=== PATIENT | female | born 1950 | race Hispanic/Latino ===

== ENCOUNTER 2017-07-29 16:32 | Inpatient (IN) | payer MEDICARE, OTHER ==
[2017-07-29] MEDS ORDERED: Magnesium Sulfate 2 GM in Sodium Chloride 0.9% 100 ML IVPB ONE (16:39)
[2017-07-29] MEDS: Albuterol-Ipratrop 3 mg / 0.5 (3 ml) UD IH SCH ×4 (16:59→20:00)
[2017-07-29 17:00] VITALS: BMI 18.3
--- NOTE | 2017-07-29 17:02 | ED PDOC ---
Arrival/HPI - General Chief Complaint: Shortness Of Breath Time Seen by Provider: 07/29/17 16:36 Historian: Patient - Critical Care Critical Care Minutes: 30 minutes - History of Present Illness Narrative History of Present Illness (Text): 07/29/17 16:59 A 66 year old female with no significant past medical history, presents to the emergency department in respiratory distress. The patient states that for the past several days she has been experiencing difficulty breathing. She states that she has been coughing, with yellow sputum present. The patient notes that she is a heavy smoker, but has never been diagnosed with COPD because she does not follow- up with a PMD. The patient denies fevers, chills, headache, dizziness, sore throat, chest pain , abdominal pain, nausea, vomiting, diarrhea , neck pain, back pain, urinary/bowel changes, or any other complaints. EMS reports patient was given one albuterol and solumedrol IV in field. PMD: No PMD Time/Duration: Other (Couple of Days) Symptom Onset: Sudden Symptom Course: Unchanged Activities at Onset: Rest, Light Context: Home Past Medical History - Provider Review Nursing Documentation Reviewed: Yes - Infectious Disease Hx of Infectious Diseases: None - Reproductive Menopause: Yes - Pulmonary Hx Emphysema: Yes - Neurological Hx Neurological Disorder: No - HEENT Hx HEENT Disorder: No - Renal Hx Renal Disorder: No - Endocrine/Metabolic Hx Endocrine Disorders: No - Hematological/Oncological Hx Blood Disorders: No - Integumentary Hx Dermatological Disorder: No - Musculoskeletal/Rheumatological Hx Musculoskeletal Disorders: No - Gastrointestinal Hx Gastrointestinal Disorders: No - Genitourinary/Gynecological Hx Genitourinary Disorders: No - Psychiatric Hx Psychophysiologic Disorder: No Hx Substance Use: No - Anesthesia Hx Anesthesia: No Hx Anesthesia Reactions: No Hx Malignant Hyperthermia: No Family/Social History - Physician Review Nursing Documentation Reviewed: Yes Family/Social History: No Known Family HX Smoking Status: Current Some Days Smoker Hx Alcohol Use: No Hx Substance Use: No Allergies/Home Meds Allergies/Adverse Reactions: Allergies No Known Allergies Allergy (Unverified 07/29/17 16:38) Home Medications: Home Meds Medication Instructions Recorded Confirmed Unobtainable 07/29/17 07/29/17 Review of Systems - Physician Review All systems were reviewed & negative as marked: Yes - Review of Systems Constitutional: absent: Fevers, Night Sweats Respiratory: SOB, Cough, Sputum Cardiovascular: absent: Chest Pain Gastrointestinal: absent: Abdominal Pain, Stool Changes, Diarrhea, Nausea, Vomiting Genitourinary Female: absent: Urine Output Changes Musculoskeletal: absent: Back Pain, Neck Pain Neurological: absent: Headache, Dizziness Physical Exam Vital Signs Reviewed: Yes Vital Signs Temp Pulse Resp BP Pulse Ox 07/29/17 17:21 101.6 F H 130 H 40 H 158/72 H 96 07/29/17 16:57 122 H 40 H 93 L Temperature: Afebrile Blood Pressure: Hypertensive Pulse: Tachycardic Respiratory Rate: Tachypneic Appearance: Positive for: Other (Patient in respiratory distress/ Patient tripoding in her position.) Pain Distress: None Mental Status: Positive for: Alert and Oriented X 3 - Systems Exam Head: Present: Atraumatic, Normocephalic Pupils: Present: PERRL Extroacular Muscles: Present: EOMI Conjunctiva: Present: Normal Mouth: Present: Moist Mucous Membranes Neck: No: JVD Respiratory/Chest: Present: Decreased Breath Sounds (Decreased air entry), Tachypneic. No: Wheezes Cardiovascular: Present: Tachycardic, Other (hypertensive) Abdomen: Present: Normal Bowel Sounds. No: Tenderness, Distention, Peritoneal Signs Back: Present: Normal Inspection Upper Extremity: Present: Normal Inspection. No: Cyanosis, Edema Lower Extremity: No: Edema Neurological: Present: GCS=15, CN II-XII Intact, Speech Normal Skin: Present: Warm, Dry, Normal Color. No: Rashes Psychiatric: Present: Alert, Oriented x 3, Normal Insight, Normal Concentration Medical Decision Making ED Course and Treatment: 07/29/17 17:05 Impression: A 66 year old female presents to the emergency department in respiratory distress. The patient states that for the past several days she has been having difficulty breathing, coughing with yellow sputum. Differential Diagnosis included but are not limited to: Shortness of Breath, rule out COPD vs. PNA vs. ACS. Plan: -- EKG -- Chest X-ray -- Urine/Blood Culture -- Urinalysis -- Duoneb, SOLU-Medrol, and IV Fluids -- Labs -- Reassess and disposition Progress Notes: 07/29/17 17:05: Patient was seen immediately upon arrival. She was placed on BiPAP. CHEST X- RAY Dictator : DR. Chavarria, Rick GARCIA Report Date : 07/29/2017 17:19:25 IMPRESSION: No active disease. 07/29/17 17:55 On reevaluation, patient is improving but still having symptoms. Lungs have better air entry. No wheezing but coughing. No rales. No lower extremity edema. Temperature elevated so treated with tylenol. IVF given. LA 2.0. WBC elevated at 16. CXR negative but considering coughing with sputum, fever, and respiratory will treat with antibiotics, Levaquin. Influenza test ordered. 07/29/17 18:06 Dr. Crabtree came to evaluate patient. He recommended Lasix 40mg IV which was added. - Critical Care Critical Care Minutes: 30 minutes - Lab Interpretations Lab Results: 07/29/17 16:50 07/29/17 16:50 Lab Results 07/29/17 17:30: pCO2 66 H, pO2 213.0 H, HCO3 34.8 H, ABG pH 7.33 L, ABG Total CO2 36.8 H, ABG O2 Saturation 99.8 H, ABG O2 Content 21.8, ABG Base Excess 6.1 H , ABG Hemoglobin 15.8, ABG Carboxyhemoglobin 2.7 H, POC ABG HHb (Measured) 0.2, ABG Methemoglobin 0.9, ABG O2 Capacity 21.8, Hgb O2 Saturation 96.2, FiO2 50.0 07/29/17 16:50: Sodium 138, Chloride 92 L, Potassium 3.5 L, Carbon Dioxide 36 H , Anion Gap 14, BUN 18, Creatinine 0.5 L, Est GFR ( Amer) > 60, Est GFR ( Non-Af Amer) > 60, Random Glucose 168 H, Calcium 10.0, Total Bilirubin 0.7, AST 30, ALT 21, Alkaline Phosphatase 144 H, Lactate Dehydrogenase 463, Total Creatine Kinase 64, Troponin I 0.05, NT-Pro-B Natriuret Pep 3410 H, Total Protein 7.7, Albumin 4.3, Globulin 3.5, Albumin/Globulin Ratio 1.2 07/29/17 16:50: pO2 82 H, VBG pH 7.29 L, VBG pCO2 78.0 H*, VBG HCO3 37.5 H, VBG Total CO2 39.9 H, VBG O2 Sat (Calc) 97.0 H, VBG Base Excess 7.9 H, VBG Potassium 3.5 L, Sodium 134.0, Chloride 96.0 L, Glucose 170 H, Lactate 2.0, FiO2 21.0, Venous Blood Potassium 3.5 L 07/29/17 16:50: PT 11.5, INR 1.06, APTT 30.8 07/29/17 16:50: WBC 16.2 H, RBC 5.19, Hgb 16.5 H, Hct 47.7, MCV 91.9, MCH 31.8, MCHC 34.6, RDW 13.3, Plt Count 366, MPV 11.6 H, Gran % 64.0, Lymph % (Auto) 14.6 L, [place] % (Auto) 21.1 H, Eos % (Auto) 0.1 L, Baso % (Auto) 0.2, Gran # 10.36 H, Lymph # 2.4, [place] # 3.4 H, Eos # 0.0, Baso # 0.03, Neutrophils % ( Manual) 68, Band Neutrophils % 3 H, Lymphocytes % (Manual) 18 L, Monocytes % ( Manual) 11 H, Platelet Evaluation Normal I have reviewed the lab results: Yes - RAD Interpretation Radiology Orders: 07/29/17 16:38 CHEST PORTABLE [RAD] Stat - EKG Interpretation Interpreted by ED Physician: Yes Type: 12 lead EKG - Medication Orders Current Medication Orders: Sodium Chloride (Sodium Chloride 0.9%) 1,000 mls @ 250 mls/hr IV .Q4H ONE Stop: 07/29/17 21:16 Last Admin: 07/29/17 17:41 Dose: 250 mls/hr eMAR Start Stop Document 07/29/17 17:41 (Rec: 07/29/17 17:41 [id number]) Intravenous Solution Start Date 07/29/17 Start Time 17:41 Levofloxacin/Dextrose (Levaquin 750mg) 750 mg in 150 mls @ 100 mls/hr IVPB STAT STA Stop: 07/29/17 19:17 Discontinued Medications Acetaminophen (Tylenol 325mg Tab) 650 mg PO STAT STA Stop: 07/29/17 17:45 Last Admin: 07/29/17 17:50 Dose: 650 mg Albuterol Sulfate (Albuterol 0.083% Inhal Katie (2.5 Mg/3 Ml) Ud) 2.5 mg IH STAT STA Stop: 07/29/17 17:45 Last Admin: 07/29/17 17:51 Dose: 2.5 mg Albuterol/Ipratropium (Duoneb 3 Mg/0.5 Mg (3 Ml) Ud) 3 ml IH Q15M MIKE Stop: 07/29/17 17:16 Last Admin: 07/29/17 17:30 Dose: 3 ml Magnesium Sulfate 2 gm/ Sodium (Chloride) 104 mls @ 102 mls/hr IVPB ONCE ONE Stop: 07/29/17 17:40 Last Admin: 07/29/17 16:59 Dose: 102 mls/hr eMAR Start Stop Document 07/29/17 16:59 (Rec: 07/29/17 16:59 [id number]) Intravenous Solution Start Date 07/29/17 Start Time 16:59 Potassium Chloride (K-Dur 20 Meq Er Tab) 40 meq PO STAT STA Stop: 07/29/17 17:53 - Scribe Statement The provider has reviewed the documentation as recorded by the Libiaibe Isela Tomas Provider Scribe Attestation: All medical record entries made by the Scribe were at my direction and personally dictated by me. I have reviewed the chart and agree that the record accurately reflects my personal performance of the history, physical exam, medical decision making, and the department course for this patient. I have also personally directed, reviewed, and agree with the discharge instructions and disposition. Disposition/Present on Arrival - Present on Arrival Any Indicators Present on Arrival: No History of DVT/PE: No History of Uncontrolled Diabetes: No Urinary Catheter: No History of Decub. Ulcer: No History Surgical Site Infection Following: None - Disposition Have Diagnosis and Disposition been Completed?: Yes Diagnosis: COPD (chronic obstructive pulmonary disease) Disposition: HOSPITALIZED Disposition Time: 18:01 Patient Plan: Admission, ICU Patient Problems: Current Active Problems Problem Status Onset COPD (chronic obstructive pulmonary disease) Acute Condition: CRITICAL Forms: [employer] ([place])
[2017-07-29 17:05] LABS: BASO # 0.03 K/mm3 (0.0-2.0); BASO % 0.2 % (0.0-3.0); EOS % 0.1 % (1.5-5.0); GRAN # 10.36 (1.4-6.5); HEMATOCRIT 47.7 % (36.0-48.0); LYMPH # 2.4 (1.2-3.4); LYMPH % 14.6 % (22.0-35.0); MEAN CELL VOLUME 91.9 fl (80.0-105.0); MEAN CORPUSCULAR HEMOGLOBIN 31.8 pg (25.0-35.0); MEAN CORPUSCULAR HGB CONC 34.6 g/dl (31.0-37.0); MEAN PLATELET VOLUME 11.6 fl (7.0-11.0); MONO # 3.4 (0.1-0.6); MONO % 21.1 % (1.0-6.0); PLATELET COUNT 366 10^3/uL (120.0-450.0); RED CELL DISTRIBUTION WIDTH 13.3 % (11.5-14.5); WHITE BLOOD COUNT 16.2 10^3/ul (4.5-11.0)
[2017-07-29 17:09] LABS: VENOUS BLOOD GAS BASE EXCESS 7.9 mmol/L (0.0-2.0); VENOUS BLOOD PH 7.29 (7.32-7.43)
[2017-07-29] MEDS ORDERED: Sodium Chloride 0.9% 1,000 ML IV ONE (17:17)
[2017-07-29 17:19] LABS: ALB/GLOB RATIO 1.2 (1.1-1.8); ALKALINE PHOSPHATASE 144 U/L (38-126); ALT/SGPT 21 U/L (7-56); AST/SGOT 30 U/L (14-36); BILIRUBIN,TOTAL 0.7 mg/dL (0.2-1.3); BLOOD UREA NITROGEN 18 mg/dL (7-21); CARBON DIOXIDE 36 mmol/L (21-33); CHLORIDE 92 mmol/L (98-107); GFR AFRICAN-AMERICAN > 60; GLUCOSE,RANDOM 168 mg/dL (70-110); INR 1.06 (0.93-1.08); PARTIAL THROMBOPLASTIN TIME 30.8 Seconds (23.7-30.8); POTASSIUM 3.5 mmol/L (3.6-5.0); SODIUM 138 mmol/L (132-148); TOTAL PROTEIN 7.7 g/dL (5.8-8.3)
--- NOTE | 2017-07-29 17:20 | RAD ---
HISTORY: Shortness of breath/pneumonia/ CHF. Portable semi erect study 17:05. COMPARISON: No prior. FINDINGS: LUNGS: No discrete infiltrates. PLEURA: No significant pleural effusion identified, no pneumothorax apparent. CARDIOVASCULAR: No radiographic findings to suggest acute or significant cardiovascular disease. OSSEOUS STRUCTURES: No significant abnormalities. VISUALIZED UPPER ABDOMEN: Normal. OTHER FINDINGS: Prominent nola bilaterally likely pulmonary arteries. IMPRESSION: No active disease.
[2017-07-29 17:29] LABS: TROPONIN I 0.05 ng/mL
[2017-07-29 17:39] LABS: ARTERIAL BLOOD GAS HCO3 34.8 mmol/L (21-28); ARTERIAL BLOOD GAS O2 CAPACITY 21.8 mL/dl (16-24); ARTERIAL BLOOD GAS O2 CONTENT 21.8 ML/dl (15-23); ARTERIAL BLOOD GAS PH 7.33 (7.35-7.45); ARTERIAL BLOOD HGB O2 SAT 96.2 % (95.0-98.0); CARBOXYHEMOGLOBIN 2.7 % (0.5-1.5); HHB 0.2 % (0-5); METHEMOGLOBIN 0.9 % (0.0-3.0)
[2017-07-29] MEDS ORDERED: Albuterol 0.083% Inhal Sol (2.5 mg/3 mL) UD IH STA (17:44)
[2017-07-29] MEDS ORDERED: Albuterol 0.083% Inhal Sol (2.5 mg/3 mL) UD ONE (17:47)
[2017-07-29] MEDS ORDERED: levoFLOXacin 750 mg in D5W 750 MG/150 ML BAG IVPB STA (17:48)
[2017-07-29] MEDS ORDERED: Potassium Chloride 20 mEq ER Tab PO STA (17:52)
[2017-07-29 18:04] LABS: BAND 3 % (0-2); NEUTROPHIL 68 % (50.0-70.0)
[2017-07-29 18:05] LABS: PLATELET ESTIMATE NORMAL (NORMAL)
[2017-07-29] MEDS ORDERED: Albuterol-Ipratrop 3 mg / 0.5 (3 ml) UD IH PRN (18:33)
[2017-07-29] MEDS ORDERED: cefTRIAXone 1 gm 1 GM/100 ML BAG IVPB STA (18:40)
[2017-07-29 19:54] LABS: MAGNESIUM 2.1 mg/dL (1.7-2.2); PHOSPHOROUS 2.9 mg/dL (2.5-4.5)
[2017-07-29] MEDS: Budesonide 0.25 mg/2 ml Inhal Susp UD IH SCH (20:00)
[2017-07-29] MEDS: Arformoterol 15 mcg/2 ml Inh Sol IH SCH (20:00)
[2017-07-29 20:19] LABS: VENOUS BLOOD GAS BASE EXCESS 5.3 mmol/L (0.0-2.0); VENOUS BLOOD PH 7.41 (7.32-7.43)
[2017-07-29] MEDS ORDERED: Pneumococcal 23-Valent Vaccine IM ONE (21:21)
[2017-07-29] MEDS: guaiFENesin DM 200 mg-20 mg/10 ml UD PO PRN (21:25)
[2017-07-29] MEDS ORDERED: MethylPREDNISolone 40 mg Vial IVP SCH (22:00)
--- NOTE | 2017-07-29 22:30 | CON ---
DATE: 07/29/2017 ARTIST AGENT CONSULT REQUESTING PHYSICIAN: Jose Alejandro Brand MD CHIEF COMPLAINT: The patient presenting with severe shortness of breath, cough, wheezing, chest congestion, and fever. HISTORY OF PRESENT ILLNESS: The patient is a 66-year-old female with history of COPD, present smoker, the patient stated that she stopped smoking approximately two days ago when this shortness of breath, cough, wheezing, and chest congestion first started. When presented to the emergency room the patient had respiratory insufficiency requiring BiPAP and O2 support noticed on arterial blood gas to be hypoxic and hypercapnic. She also is noted to have an increased white count as well as fever, thought to be probably secondary to a viral syndrome possibly flu, but sepsis must be ruled out as well. The patient has no complaints of chest pain. No nausea. No vomiting. No diarrhea. No abdominal pain. PAST MEDICAL HISTORY: As above. ALLERGIES: NO KNOWN ALLERGIES. CURRENT MEDICATIONS: Can be evaluated as per nurses intake form. SOCIAL HISTORY: The patient is a smoker. No ETOH abuse. No drug abuse. FAMILY HISTORY: Noncontributory. REVIEW OF SYSTEMS: CONSTITUTIONAL: The patient did present with a fever. No nausea or vomiting. HEENT: All negative. RESPIRATORY: The patient had the shortness of breath, cough, wheezing, chest congestion. CARDIOVASCULAR: No chest pain. NO palpitations. GASTROINTESTINAL: All negative. GENITOURINARY: All negative. MUSCULOSKELETAL: All negative. NEURO/PSYCHIATRIC: All negative. HEMATOLOGIC: All negative. IMMUNOLOGIC: All negative. ENDOCRINE: All negative. PHYSICAL EXAMINATION VITAL SIGNS: Note that her temperature is 101.6, her pulse is 130, respirations are , blood pressure 158/72, O2 saturation 96 with BiPAP and O2 support. HEENT: Head is atraumatic, normocephalic. Eyes are reactive to light. Ears, nose and throat seemed to be within normal limits. NECK: Supple. No JVD. No thyroid enlargement. No lymph nodes. HEART: Has a regular rate and rhythm. Normal S1 and S2, but tachycardiac. LUNGS: Reveal decrease breath sounds bilaterally with mild rhonchi at the basis and occasional expiratory wheeze. ABDOMEN: Soft and nontender. Normal bowel sounds. No organomegaly noted. GENITALIA: Deferred. RECTAL: Deferred. MUSCULOSKELETAL: No joint deformities. EXTREMITIES: Reveal no edema. NEUROLOGICAL: She seemed to be grossly intact. LABORATORY DATA: As far as her laboratories her white count is 16.2, hemoglobin 16.5, hematocrit 47.7 with a platelets of 366,000. Her sodium is 138, potassium 3.5, chloride 92, CO2 of 36, BUN of 18, creatinine 0.5, and glucose of 168. Atrial blood gas reveals a pH 7.33, PCO2 of 66, and PO2 213. This is on BiPAP and 02 support. Chest x-ray reveals no infiltrate. IMPRESSION: As far as my impression, this patient has severe exacerbation of her chronic obstructive pulmonary disease, she has fever and increased white count, must rule out sepsis, but more likely this is a viral syndrome. PLAN: As far as our plan, we will continue with aggressive pulmonary toilet, continue with BiPAP and O2 support. We will follow her chest x-ray and arterial blood gas closely. The patient is on Levaquin as antibiotic, she is getting IV steroids. We will follow up with all cultures. We will follow her laboratories closely and correct as needed and we will continue to treat aggressively along with the other consultants and the primary care doctor. Aldair Crabtree MD
[2017-07-29] MEDS: Insulin Lispro (humaLOG) LOW Coverage SC SCH (22:38)
[2017-07-30] MEDS: MethylPREDNISolone 40 mg Vial IVP SCH ×4 (01:00→17:39)
[2017-07-30] MEDS: Albuterol-Ipratrop 3 mg / 0.5 (3 ml) UD IH SCH ×4 (01:09→19:32)
[2017-07-30 03:43] LABS: PH,URINE 5.5 (4.7-8.0); URINE BILIRUBIN NEGATIVE (NEGATIVE); URINE BLOOD MODERATE (NEGATIVE); URINE GLUCOSE (UA) NEGATIVE (NEGATIVE); URINE KETONE NEGATIVE (NEGATIVE); URINE LEUKOCYTE ESTERASE NEGATIVE Leu/uL (NEGATIVE); URINE PROTEIN 100 mg/dL (<30 mg/dL); URINE UROBILINOGEN 0.2 E.U./dL (<1 E.U./dL)
[2017-07-30 03:56] LABS: URINE APPEARANCE SL CLOUDY (CLEAR); URINE COLOR YELLOW (YELLOW)
[2017-07-30 04:20] LABS: URINE WBC 0 - 2 /hpf (0-6)
[2017-07-30 04:21] LABS: URINE BACTERIA MOD (NEG)
[2017-07-30 05:24] LABS: ARTERIAL BLOOD GAS HCO3 38.4 mmol/L (21-28); ARTERIAL BLOOD GAS O2 CAPACITY 20.8 mL/dl (16-24); ARTERIAL BLOOD GAS O2 CONTENT 20.5 ML/dl (15-23); ARTERIAL BLOOD GAS PH 7.46 (7.35-7.45); ARTERIAL BLOOD HGB O2 SAT 95.9 % (95.0-98.0); CARBOXYHEMOGLOBIN 1.6 % (0.5-1.5); HHB 1.5 % (0-5); METHEMOGLOBIN 0.9 % (0.0-3.0)
[2017-07-30 05:59] LABS: BASO # 0.01 K/mm3 (0.0-2.0); BASO % 0.1 % (0.0-3.0); GRAN # 10.96 (1.4-6.5); GRAN % 87.8 % (50.0-68.0); HEMATOCRIT 43.3 % (36.0-48.0); LYMPH # 0.6 (1.2-3.4); MEAN CELL VOLUME 92.1 fl (80.0-105.0); MEAN CORPUSCULAR HEMOGLOBIN 31.3 pg (25.0-35.0); MEAN CORPUSCULAR HGB CONC 33.9 g/dl (31.0-37.0); MEAN PLATELET VOLUME 11.7 fl (7.0-11.0); MONO # 0.9 (0.1-0.6); MONO % 7.1 % (1.0-6.0); RED CELL DISTRIBUTION WIDTH 13.4 % (11.5-14.5); WHITE BLOOD COUNT 12.5 10^3/ul (4.5-11.0)
[2017-07-30 06:05] LABS: ALB/GLOB RATIO 1.2 (1.1-1.8); ALKALINE PHOSPHATASE 121 U/L (38-126); ALT/SGPT 22 U/L (7-56); AST/SGOT 28 U/L (14-36); BILIRUBIN,TOTAL 0.4 mg/dL (0.2-1.3); BLOOD UREA NITROGEN 18 mg/dL (7-21); CALCIUM 9.5 mg/dL (8.4-10.5); CHLORIDE 90 mmol/L (98-107); GFR AFRICAN-AMERICAN > 60; GLUCOSE,RANDOM 163 mg/dL (70-110); MAGNESIUM 2.3 mg/dL (1.7-2.2); PHOSPHOROUS 3.1 mg/dL (2.5-4.5); POTASSIUM 3.2 mmol/L (3.6-5.0); SODIUM 140 mmol/L (132-148); TOTAL PROTEIN 6.9 g/dL (5.8-8.3)
[2017-07-30 06:12] LABS: CARBON DIOXIDE 37 mmol/L (21-33)
[2017-07-30] MEDS: Arformoterol 15 mcg/2 ml Inh Sol IH SCH ×2 (08:30→19:32)
[2017-07-30] MEDS: Budesonide 0.25 mg/2 ml Inhal Susp UD IH SCH ×2 (08:30→19:32)
[2017-07-30] MEDS: Insulin Lispro (humaLOG) LOW Coverage SC SCH ×4 (08:53→22:24)
--- NOTE | 2017-07-30 09:17 | CP.PCM.HP ---
History of Present Illness - History of Present Illness History of Present Illness: CC: Shortness of Breath History of Present Illness: History from the Chart as patient confused and not cooperative A 66 year old female with no significant past medical history, presents to the emergency department in respiratory distress. The patient states that for the past several days she has been experiencing difficulty breathing. She states that she has been coughing, with yellow sputum present. The patient notes that she is a heavy smoker, but has never been diagnosed with COPD because she does not follow- up with a PMD. She spiked fever >101 last night. Denies headache, dizziness, sore throat, chest pain , abdominal pain, nausea, vomiting, diarrhea , neck pain, back pain, urinary/bowel changes, or any other complaints. In the ER, the patient was in acute respiratory distress and was put on BIPAP, and was admitted to ICU. Patient not cooperating with the Medical staff. Currently refusing the BIPAP. Present on Admission - Present on Admission Any Indicators Present on Admission: No History of DVT/PE: No History of Uncontrolled Diabetes: No Urinary Catheter: No Decubitus Ulcer Present: No Review of Systems - Review of Systems All systems: reviewed and no additional remarkable complaints except Past Patient History - Infectious Disease Hx of Infectious Diseases: None - Past Medical History & Family History Past Medical History?: Yes Past Family History: Reviewed and not pertinent - Past Social History Smoking Status: Heavy Smoker > 10 Cigarettes Daily Alcohol: None Drugs: Denies - PULMONARY Hx Emphysema: Yes - NEUROLOGICAL Hx Neurological Disorder: No - HEENT Hx HEENT Problems: No - RENAL Hx Chronic Kidney Disease: No - ENDOCRINE/METABOLIC Hx Endocrine Disorders: No - HEMATOLOGICAL/ONCOLOGICAL Hx Blood Disorders: No - INTEGUMENTARY Hx Dermatological Problems: No - MUSCULOSKELETAL/RHEUMATOLOGICAL Hx Arthritis: Yes (fingers knees) Hx Falls: No - GASTROINTESTINAL Hx Gastrointestinal Disorders: No Hx Gastroesophageal Reflux: Yes - GENITOURINARY/GYNECOLOGICAL Hx Genitourinary Disorders: No - PSYCHIATRIC Hx Psychophysiologic Disorder: No - SURGICAL HISTORY Hx Surgeries: Yes Other/Comment: sx for ovarian cyst - ANESTHESIA Hx Anesthesia: No Hx Anesthesia Reactions: No Hx Malignant Hyperthermia: No Meds Allergies/Adverse Reactions: Allergies Allergy/AdvReac Type Severity Reaction Status Date / Time No Known Allergies Allergy Unverified 07/29/17 16:38 Physical Exam - Constitutional Appears: In Acute Distress, Chronically Ill - Head Exam Head Exam: ATRAUMATIC, NORMAL INSPECTION, NORMOCEPHALIC - Eye Exam Eye Exam: EOMI, Normal appearance, PERRL Pupil Exam: NORMAL ACCOMODATION, PERRL - ENT Exam ENT Exam: Mucous Membranes Moist, Normal Exam - Neck Exam Neck exam: Positive for: Normal Inspection - Respiratory Exam Respiratory Exam: Accessory Muscle Use, Decreased Breath Sounds, Prolonged Expiratory Phase - Cardiovascular Exam Cardiovascular Exam: Tachycardia - GI/Abdominal Exam GI & Abdominal Exam: Normal Bowel Sounds, Soft. absent: Tenderness - Rectal Exam Rectal Exam: NORMAL INSPECTION - Extremities Exam Extremities exam: Positive for: normal inspection - Neurological Exam Neurological exam: Alert, Altered, CN II-XII Intact - Psychiatric Exam Psychiatric exam: Depressed, Flat Affect - Skin Skin Exam: Dry, Intact, Normal Color, Warm Results - Vital Signs Recent Vital Signs: Last Vital Signs Temp 98.5 F 07/29/17 21:10 Pulse 90 07/30/17 06:00 Resp 25 H 07/30/17 06:00 BP 141/71 07/30/17 06:00 Pulse Ox 94 L 07/30/17 06:00 - Labs Result Diagrams: 07/30/17 05:00 07/30/17 05:00 Labs: Laboratory Results - last 24 hr 07/29/17 07/29/17 07/30/17 20:13 21:44 03:00 WBC RBC Hgb Hct MCV MCH MCHC RDW Plt Count MPV Gran % Lymph % (Auto) Perry % (Auto) Eos % (Auto) Baso % (Auto) Gran # Lymph # Perry # Eos # Baso # pCO2 pO2 66 H HCO3 ABG pH ABG Total CO2 ABG O2 Saturation ABG O2 Content ABG Base Excess ABG Hemoglobin ABG Carboxyhemoglobin POC ABG HHb (Measured) ABG Methemoglobin ABG O2 Capacity VBG pH 7.41 VBG pCO2 49.0 VBG HCO3 31.1 H VBG Total CO2 32.6 H VBG O2 Sat (Calc) 96.1 H VBG Base Excess 5.3 H VBG Potassium 2.6 L Hgb O2 Saturation Sodium 134.0 Chloride 93.0 L Glucose 297 H Lactate 2.9 H FiO2 21.0 Potassium Carbon Dioxide Anion Gap BUN Creatinine Est GFR ( Amer) Est GFR (Non-Af Amer) POC Glucose (mg/dL) 233 H Random Glucose Calcium Phosphorus Magnesium Total Bilirubin AST ALT Alkaline Phosphatase Total Protein Albumin Globulin Albumin/Globulin Ratio Venous Blood Potassium 2.6 L Urine Color Yellow Urine Appearance Sl cloudy Urine pH 5.5 Ur Specific [place] 1.020 Urine Protein 100 H Urine Glucose (UA) Negative Urine Ketones Negative Urine Blood Moderate H Urine Nitrate Negative Urine Bilirubin Negative Urine Urobilinogen 0.2 Ur Leukocyte Esterase Negative Urine RBC 1 - 3 Urine WBC 0 - 2 Urine Bacteria Mod 07/30/17 07/30/17 07/30/17 05:00 05:00 05:20 WBC 12.5 H D RBC 4.70 Hgb 14.7 Hct 43.3 MCV 92.1 MCH 31.3 MCHC 33.9 RDW 13.4 Plt Count 305 MPV 11.7 H Gran % 87.8 H Lymph % (Auto) 5.0 L Perry % (Auto) 7.1 H Eos % (Auto) 0.0 L Baso % (Auto) 0.1 Gran # 10.96 H Lymph # 0.6 L Perry # 0.9 H Eos # 0.0 Baso # 0.01 pCO2 54 H pO2 88.0 HCO3 38.4 H ABG pH 7.46 H ABG Total CO2 40.1 H ABG O2 Saturation 98.5 H ABG O2 Content 20.5 ABG Base Excess 12.1 H ABG Hemoglobin 15.2 ABG Carboxyhemoglobin 1.6 H POC ABG HHb (Measured) 1.5 ABG Methemoglobin 0.9 ABG O2 Capacity 20.8 VBG pH VBG pCO2 VBG HCO3 VBG Total CO2 VBG O2 Sat (Calc) VBG Base Excess VBG Potassium Hgb O2 Saturation 95.9 Sodium 140 Chloride 90 L Glucose Lactate FiO2 35.0 Potassium 3.2 L Carbon Dioxide 37 H Anion Gap 16 BUN 18 Creatinine 0.7 Est GFR ( Amer) > 60 Est GFR (Non-Af Amer) > 60 POC Glucose (mg/dL) Random Glucose 163 H Calcium 9.5 Phosphorus 3.1 Magnesium 2.3 H Total Bilirubin 0.4 AST 28 ALT 22 Alkaline Phosphatase 121 Total Protein 6.9 Albumin 3.7 Globulin 3.2 Albumin/Globulin Ratio 1.2 Venous Blood Potassium Urine Color Urine Appearance Urine pH Ur Specific [place] Urine Protein Urine Glucose (UA) Urine Ketones Urine Blood Urine Nitrate Urine Bilirubin Urine Urobilinogen Ur Leukocyte Esterase Urine RBC Urine WBC Urine Bacteria - Imaging and Cardiology Chest x-ray Status: Report reviewed by me Additional comment: No Active disease Assessment & Plan (1) Acute respiratory failure with hypercapnia Assessment and Plan: COPD Exacerbation, Acute Bronchitis, Leukocytosis, Spiked fever of 101.2, Sepsis BIPAP Continue to monitor in ICU 2L O2 via NC IV Ceftriaxone/Zithromax IV Solumedrol, Brovan and Pulmicort Duoneb RTC Pulmonary and ID Consult Blood, Sputum and urine Culture DVT Prophylaxis Status: Acute (2) Hypokalemia Assessment and Plan: Replenish K Repeat BMP Status: Acute Priority: Medium
[2017-07-30] MEDS: Azithromycin 500MG/NS 250ml 500 MG/250 ML BAG IVPB SCH (09:46)
[2017-07-30] MEDS: Potassium Chloride 20 mEq/15 ml LIQ UD PO SCH ×2 (11:15→17:39)
--- NOTE | 2017-07-30 11:26 | RAD ---
HISTORY: COPD/follow-up. Technique: Single view portable semi erect @ 11:25 COMPARISON: July 29, 2017. FINDINGS: LUNGS: No active pulmonary disease. PLEURA: No significant pleural effusion identified, no pneumothorax apparent. CARDIOVASCULAR: Normal. OSSEOUS STRUCTURES: No significant abnormalities. VISUALIZED UPPER ABDOMEN: Normal. OTHER FINDINGS: None. IMPRESSION: No active disease. No significant interval change compared to the prior examination(s).
--- NOTE | 2017-07-30 12:16 | PN ---
DATE: 07/30/2017 ART PSYCHOTHERAPIST OR THERAPIST NOTE SUBJECTIVE: The patient is resting in bed with BiPAP, still has slight labored respirations. The patient has refused her blood draws for this morning, refused chest x-ray, stating that no one is letting her get any sleep. No complaints of pain. No fever or chills. No nausea or vomiting. No abdominal pain. No diarrhea. PHYSICAL EXAMINATION: VITAL SIGNS: Reveals temperature of 98.5, pulse is 87, respirations are 25 and BP is 141/71. SKIN: Warm and dry. HEENT: Head is atraumatic and normocephalic. Eyes are reactive to light. Ears, nose and throat are seemed to be within normal limits. NECK: Supple. No JVD. No thyroid enlargement. No lymph nodes. HEART: Regular rate and rhythm. Normal S1 and S2. LUNGS: Reveal mild rhonchi bilaterally. ABDOMEN: Soft and nontender. Normal bowel sounds. No organomegaly noted. GENITALIA: Deferred. RECTAL: Deferred MUSCULOSKELETAL: No joint deformities. EXTREMITIES: Reveal no edema. NEUROLOGICAL: She seems to be grossly intact. LABORATORY DATA: As far as her laboratories are concerned, her white count is 12.5, hemoglobin is 14.7 and hematocrit is 43.3 with platelets of 305,000. Arterial blood gas revealed pH of 7.46, pCO2 of 54, and pO2 of 88. Her sodium is 140, potassium is 3.2, chloride is 90, CO2 of 37 with a BUN of 18, creatinine of 0.7, and glucose of 163. IMPRESSION: The patient has acute exacerbation of chronic obstructive pulmonary disease, has history of fever and thought to be secondary to possible viral syndrome. PLAN: As far as her plan, we will continue with BiPAP and O2 support. We will continue to follow her chest x-ray and arterial blood gas closely. She is on antibiotics as well as IV steroids and bronchodilators, and is getting cough medications as well. We will continue to monitor closely and treat aggressively along with the other consultants and the primary care doctor. Aldair Crabtree MD
[2017-07-30] MEDS: cefTRIAXone 1 gm 1 GM/100 ML BAG IVPB SCH (17:46)
[2017-07-30] MEDS ORDERED: Potassium Chloride 20 mEq ER Tab PO ONE (17:59)
--- NOTE | 2017-07-30 19:50 | CARD ---
APPROVED REPORT EKG Measurement Heart [id number] <Conclusion> Sinus tachycardia Biatrial enlargement Left axis deviation Pulmonary disease pattern Right bundle branch block Abnormal ECG
[2017-07-31] MEDS: levoFLOXacin 750 mg in D5W 150 ML BAG IVPB SCH ×2 (00:15→17:42)
[2017-07-31] MEDS: guaiFENesin DM 200 mg-20 mg/10 ml UD PO PRN ×3 (00:46→14:53)
[2017-07-31] MEDS: MethylPREDNISolone 40 mg Vial IVP SCH ×4 (00:46→17:53)
[2017-07-31] MEDS: Albuterol-Ipratrop 3 mg / 0.5 (3 ml) UD IH SCH ×4 (01:42→20:05)
[2017-07-31] MEDS: Pantoprazole 40 mg EC Tab PO SCH (06:26)
[2017-07-31 07:07] LABS: BASO # 0.01 K/mm3 (0.0-2.0); BASO % 0.1 % (0.0-3.0); GRAN # 13.48 (1.4-6.5); GRAN % 88.3 % (50.0-68.0); LYMPH # 0.8 (1.2-3.4); MEAN CELL VOLUME 93.2 fl (80.0-105.0); MEAN CORPUSCULAR HEMOGLOBIN 31.4 pg (25.0-35.0); MEAN CORPUSCULAR HGB CONC 33.6 g/dl (31.0-37.0); MEAN PLATELET VOLUME 11.1 fl (7.0-11.0); MONO % 6.6 % (1.0-6.0); RED CELL DISTRIBUTION WIDTH 13.8 % (11.5-14.5); WHITE BLOOD COUNT 15.3 10^3/ul (4.5-11.0)
[2017-07-31 07:27] LABS: ALB/GLOB RATIO 1.3 (1.1-1.8); ALKALINE PHOSPHATASE 112 U/L (38-126); ALT/SGPT 24 U/L (7-56); AST/SGOT 26 U/L (14-36); BILIRUBIN,TOTAL 0.4 mg/dL (0.2-1.3); BLOOD UREA NITROGEN 29 mg/dL (7-21); CALCIUM 9.3 mg/dL (8.4-10.5); CARBON DIOXIDE 39 mmol/L (21-33); CHLORIDE 96 mmol/L (98-107); GFR AFRICAN-AMERICAN > 60; GLUCOSE,RANDOM 136 mg/dL (70-110); MAGNESIUM 2.3 mg/dL (1.7-2.2); PHOSPHOROUS 3.1 mg/dL (2.5-4.5); POTASSIUM 3.8 mmol/L (3.6-5.0); SODIUM 142 mmol/L (132-148); TOTAL PROTEIN 6.3 g/dL (5.8-8.3)
--- NOTE | 2017-07-31 07:43 | CP.PCM.PCO ---
Physician Communication Note - Physician Communication Note Physician Communication Note: Consistently stable VSS; Off of Bipap; Thus, will downgrade to tele now
[2017-07-31] MEDS: Arformoterol 15 mcg/2 ml Inh Sol IH SCH ×2 (07:50→20:05)
[2017-07-31] MEDS: Budesonide 0.25 mg/2 ml Inhal Susp UD IH SCH ×2 (07:52→20:05)
[2017-07-31] MEDS: Insulin Lispro (humaLOG) LOW Coverage SC SCH ×4 (09:26→21:25)
[2017-07-31] MEDS: Azithromycin 500MG/NS 250ml 500 MG/250 ML BAG IVPB SCH (09:40)
--- NOTE | 2017-07-31 09:44 | RAD ---
HISTORY: COPD, f/u COMPARISON: 07/30/2017 FINDINGS: LUNGS: The lungs are hyperinflated and there is peribronchial thickening with chronic changes in both lungs. There is no lobar pneumonia. PLEURA: No significant pleural effusion identified, no pneumothorax apparent. CARDIOVASCULAR: Normal. OSSEOUS STRUCTURES: No significant abnormalities. VISUALIZED UPPER ABDOMEN: Normal. OTHER FINDINGS: None. IMPRESSION: No active pulmonary disease. COPD.
[2017-07-31] MEDS: cefTRIAXone 1 gm 1 GM/100 ML BAG IVPB SCH (17:43)
--- NOTE | 2017-07-31 22:58 | CP.PCM.PN ---
Subjective - Date & Time of Evaluation Date of Evaluation: 07/31/17 Time of Evaluation: 15:30 - Subjective Subjective: Seen and examined at the bed side. Continues to complain sob but states feel better. Denies fever, chills or chest pain. WBC trending up possibly due to Steroids. Objective - Vital Signs/Intake and Output Vital Signs (last 24 hours): Temp Pulse Resp BP Pulse Ox 98.6 F 101 H 20 142/68 96 07/31/17 16:00 07/31/17 16:00 07/31/17 16:00 07/31/17 16:00 07/31/17 16:00 Intake and Output: 07/31/17 08/01/17 18:59 06:59 Intake Total 600 360 Output Total 1000 800 Balance -400 -440 - Medications Medications: Current Medications Albuterol/Ipratropium (Duoneb 3 Mg/0.5 Mg (3 Ml) Ud) 3 ml IH [id number] REPLACED BY [facility] Last Admin: 07/31/17 20:05 Dose: 3 ml Albuterol/Ipratropium (Duoneb 3 Mg/0.5 Mg (3 Ml) Ud) 3 ml IH Q2H PRN PRN Reason: Shortness of Breath Arformoterol Tartrate (Brovana) 15 mcg IH [id number] REPLACED BY [facility] Last Admin: 07/31/17 20:05 Dose: 15 mcg Budesonide (Pulmicort Respules) 0.5 mg IH [id number] REPLACED BY [facility] Last Admin: 07/31/17 20:05 Dose: 0.5 mg Furosemide (Lasix) 40 mg IVP DAILY REPLACED BY [facility] Last Admin: 07/31/17 09:41 Dose: 40 mg Guaifenesin/Dextromethorphan (Robitussin Dm) 10 ml PO Q4H PRN PRN Reason: Cough Last Admin: 07/31/17 14:53 Dose: 10 ml Ceftriaxone Sodium (Rocephin 1 Gram Ivpb) 1 gm in 100 mls @ 100 mls/hr IVPB 1800 [facility]KE PRN Reason: Protocol Last Admin: 07/31/17 17:43 Dose: 100 mls/hr Azithromycin (Zithromax 500mg In Ns) 500 mg in 250 mls @ 167 mls/hr IVPB DAILY REPLACED BY [facility] PRN Reason: Protocol Last Admin: 07/31/17 09:40 Dose: 167 mls/hr Insulin Human Lispro (Humalog Low) 0 units SC ACHS REPLACED BY [facility] PRN Reason: Protocol Last Admin: 07/31/17 21:25 Dose: Not Given Levofloxacin/Dextrose (Levaquin 750mg) 750 mg IVPB Q24H REPLACED BY [facility] Last Admin: 07/31/17 17:42 Dose: 750 mg Methylprednisolone (Solu-Medrol) 40 mg IVP Q6 REPLACED BY [facility] Last Admin: 07/31/17 17:53 Dose: 40 mg Pantoprazole Sodium (Protonix Ec Tab) 40 mg PO 0600 REPLACED BY [facility] Last Admin: 07/31/17 06:26 Dose: 40 mg - Labs Labs: 07/31/17 06:40 07/31/17 06:40 PT 11.5 Seconds (9.9-11.8) 07/29/17 16:50 INR 1.06 (0.93-1.08) 07/29/17 16:50 APTT 30.8 Seconds (23.7-30.8) 07/29/17 16:50 - Constitutional Appears: Well, No Acute Distress - Head Exam Head Exam: ATRAUMATIC, NORMAL INSPECTION, NORMOCEPHALIC - Eye Exam Eye Exam: EOMI, Normal appearance, PERRL Pupil Exam: NORMAL ACCOMODATION, PERRL - ENT Exam ENT Exam: Mucous Membranes Moist, Normal Exam - Neck Exam Neck Exam: Full ROM, Normal Inspection. absent: Lymphadenopathy - Respiratory Exam Respiratory Exam: Prolonged Expiratory Phase, Wheezes. absent: Rales - Cardiovascular Exam Cardiovascular Exam: REGULAR RHYTHM, +S1, +S2. absent: Murmur - GI/Abdominal Exam GI & Abdominal Exam: Soft, Normal Bowel Sounds. absent: Tenderness - Extremities Exam Extremities Exam: Full ROM, Normal Capillary Refill, Normal Inspection. absent : Joint Swelling, Pedal Edema - Back Exam Back Exam: NORMAL INSPECTION - Neurological Exam Neurological Exam: Alert, Awake, CN II-XII Intact, Normal Gait, Oriented x3 - Psychiatric Exam Psychiatric exam: Normal Affect, Normal Mood - Skin Skin Exam: Dry, Intact, Normal Color, Warm Assessment and Plan (1) Acute respiratory failure with hypercapnia Assessment & Plan: COPD Exacerbation Leukocytosis Improving Continue IV Levaquin and Rocephin IV SOlumedrol Duoneb RTC O2 Via NC Status: Acute (2) Hypokalemia Status: Resolved
[2017-08-01] MEDS: guaiFENesin DM 200 mg-20 mg/10 ml UD PO PRN ×3 (00:09→21:32)
[2017-08-01] MEDS: MethylPREDNISolone 40 mg Vial IVP SCH ×4 (00:12→17:53)
[2017-08-01] MEDS: Albuterol-Ipratrop 3 mg / 0.5 (3 ml) UD IH SCH ×4 (02:30→21:49)
[2017-08-01] MEDS: Pantoprazole 40 mg EC Tab PO SCH (05:57)
[2017-08-01 06:49] LABS: BASO # 0.02 K/mm3 (0.0-2.0); BASO % 0.1 % (0.0-3.0); GRAN # 19.12 (1.4-6.5); GRAN % 88.2 % (50.0-68.0); HEMATOCRIT 46.9 % (36.0-48.0); LYMPH # 1.1 (1.2-3.4); LYMPH % 4.9 % (22.0-35.0); MEAN CELL VOLUME 93.8 fl (80.0-105.0); MEAN CORPUSCULAR HEMOGLOBIN 30.6 pg (25.0-35.0); MEAN CORPUSCULAR HGB CONC 32.6 g/dl (31.0-37.0); MEAN PLATELET VOLUME 11.1 fl (7.0-11.0); MONO # 1.5 (0.1-0.6); MONO % 6.8 % (1.0-6.0); WHITE BLOOD COUNT 21.7 10^3/ul (4.5-11.0)
[2017-08-01 06:58] LABS: ALB/GLOB RATIO 1.2 (1.1-1.8); ALKALINE PHOSPHATASE 107 U/L (38-126); ALT/SGPT 21 U/L (7-56); AST/SGOT 22 U/L (14-36); BILIRUBIN,TOTAL 0.4 mg/dL (0.2-1.3); BLOOD UREA NITROGEN 27 mg/dL (7-21); CALCIUM 9.2 mg/dL (8.4-10.5); CHLORIDE 91 mmol/L (98-107); GFR AFRICAN-AMERICAN > 60; GLUCOSE,RANDOM 152 mg/dL (70-110); MAGNESIUM 2.2 mg/dL (1.7-2.2); PHOSPHOROUS 4.3 mg/dL (2.5-4.5); POTASSIUM 3.5 mmol/L (3.6-5.0); SODIUM 142 mmol/L (132-148); TOTAL PROTEIN 6.5 g/dL (5.8-8.3)
[2017-08-01 07:08] LABS: CARBON DIOXIDE 40 mmol/L (21-33)
[2017-08-01] MEDS: Arformoterol 15 mcg/2 ml Inh Sol IH SCH ×2 (07:32→21:43)
[2017-08-01] MEDS: Budesonide 0.25 mg/2 ml Inhal Susp UD IH SCH ×2 (07:33→21:44)
[2017-08-01] MEDS: Insulin Lispro (humaLOG) LOW Coverage SC SCH ×4 (08:30→21:37)
[2017-08-01] MEDS: Azithromycin 500MG/NS 250ml 500 MG/250 ML BAG IVPB SCH (09:39)
[2017-08-01] MEDS: levoFLOXacin 750 mg in D5W 150 ML BAG IVPB SCH (15:00)
[2017-08-01] MEDS: cefTRIAXone 1 gm 1 GM/100 ML BAG IVPB SCH (17:53)
--- NOTE | 2017-08-01 23:19 | CP.PCM.PN ---
Subjective - Date & Time of Evaluation Date of Evaluation: 08/01/17 Time of Evaluation: 11:35 - Subjective Subjective: Seen and examined at bed side. Still coughing but sob has gotten better. Out of bed to chair today. Objective - Vital Signs/Intake and Output Vital Signs (last 24 hours): Temp Pulse Resp BP Pulse Ox 98.5 F 67 20 141/69 98 08/01/17 16:00 08/01/17 22:00 08/01/17 16:00 08/01/17 16:00 08/01/17 16:00 Intake and Output: 08/01/17 08/02/17 18:59 06:59 Intake Total 360 Balance 360 - Medications Medications: Current Medications Albuterol/Ipratropium (Duoneb 3 Mg/0.5 Mg (3 Ml) Ud) 3 ml IH [id number] [facility] Last Admin: 08/01/17 21:49 Dose: 3 ml Albuterol/Ipratropium (Duoneb 3 Mg/0.5 Mg (3 Ml) Ud) 3 ml IH Q2H PRN PRN Reason: Shortness of Breath Arformoterol Tartrate (Brovana) 15 mcg IH [id number] [facility] Last Admin: 08/01/17 21:43 Dose: 15 mcg Budesonide (Pulmicort Respules) 0.5 mg IH [id number] [facility] Last Admin: 08/01/17 21:44 Dose: 0.5 mg Furosemide (Lasix) 40 mg IVP DAILY [facility] Last Admin: 08/01/17 09:37 Dose: 40 mg Guaifenesin/Dextromethorphan (Robitussin Dm) 10 ml PO Q4H PRN PRN Reason: Cough Last Admin: 08/01/17 21:32 Dose: 10 ml Ceftriaxone Sodium (Rocephin 1 Gram Ivpb) 1 gm in 100 mls @ 100 mls/hr IVPB 1800 MIKE PRN Reason: Protocol Last Admin: 08/01/17 17:53 Dose: 100 mls/hr Insulin Human Lispro (Humalog Low) 0 units SC ACHS [facility] PRN Reason: Protocol Last Admin: 08/01/17 21:37 Dose: Not Given Levofloxacin/Dextrose (Levaquin 750mg) 750 mg IVPB Q24H [facility] Last Admin: 08/01/17 15:00 Dose: 750 mg Methylprednisolone (Solu-Medrol) 40 mg IVP Q6 [facility] Last Admin: 08/01/17 17:53 Dose: 40 mg Pantoprazole Sodium (Protonix Ec Tab) 40 mg PO 0600 [facility] Last Admin: 08/01/17 05:57 Dose: 40 mg - Labs Labs: 08/01/17 06:20 08/01/17 06:20 PT 11.5 Seconds (9.9-11.8) 07/29/17 16:50 INR 1.06 (0.93-1.08) 07/29/17 16:50 APTT 30.8 Seconds (23.7-30.8) 07/29/17 16:50 - Constitutional Appears: Well, No Acute Distress - Head Exam Head Exam: ATRAUMATIC, NORMAL INSPECTION, NORMOCEPHALIC - Eye Exam Eye Exam: EOMI, Normal appearance, PERRL Pupil Exam: NORMAL ACCOMODATION, PERRL - ENT Exam ENT Exam: Mucous Membranes Moist, Normal Exam - Neck Exam Neck Exam: Full ROM, Normal Inspection. absent: Lymphadenopathy - Respiratory Exam Respiratory Exam: Decreased Breath Sounds, Clear to Ausculation Bilateral. absent: Wheezes - Cardiovascular Exam Cardiovascular Exam: REGULAR RHYTHM, +S1, +S2. absent: Murmur - GI/Abdominal Exam GI & Abdominal Exam: Soft, Normal Bowel Sounds. absent: Tenderness - Extremities Exam Extremities Exam: Full ROM, Normal Capillary Refill, Normal Inspection. absent : Joint Swelling, Pedal Edema - Back Exam Back Exam: NORMAL INSPECTION - Neurological Exam Neurological Exam: Abnormal Gait, Alert, Awake, CN II-XII Intact, Oriented x3 - Psychiatric Exam Psychiatric exam: Normal Affect, Normal Mood - Skin Skin Exam: Dry, Intact, Normal Color, Warm Assessment and Plan (1) Acute respiratory failure with hypercapnia Assessment & Plan: COPD Exacerbation Improving Continue IV Levaquin and Rocephin IV SOlumedrol Duoneb RTC O2 Via NC Status: Acute (2) Hypokalemia Status: Resolved Status: Resolved
[2017-08-02] MEDS: MethylPREDNISolone 40 mg Vial IVP SCH ×5 (00:05→23:14)
[2017-08-02] MEDS: Albuterol-Ipratrop 3 mg / 0.5 (3 ml) UD IH SCH ×4 (02:45→21:45)
[2017-08-02] MEDS: Pantoprazole 40 mg EC Tab PO SCH (05:27)
[2017-08-02] MEDS: guaiFENesin DM 200 mg-20 mg/10 ml UD PO PRN ×2 (05:28→15:32)
[2017-08-02 07:00] LABS: BASO # 0.02 K/mm3 (0.0-2.0); BASO % 0.2 % (0.0-3.0); GRAN # 11.66 (1.4-6.5); GRAN % 87.4 % (50.0-68.0); HEMATOCRIT 45.7 % (36.0-48.0); LYMPH # 0.8 (1.2-3.4); LYMPH % 6.2 % (22.0-35.0); MEAN CORPUSCULAR HEMOGLOBIN 30.7 pg (25.0-35.0); MEAN CORPUSCULAR HGB CONC 32.6 g/dl (31.0-37.0); MONO # 0.8 (0.1-0.6); MONO % 6.2 % (1.0-6.0); RED CELL DISTRIBUTION WIDTH 13.9 % (11.5-14.5); WHITE BLOOD COUNT 13.3 10^3/ul (4.5-11.0)
[2017-08-02 07:23] LABS: ALB/GLOB RATIO 1.1 (1.1-1.8); ALKALINE PHOSPHATASE 86 U/L (38-126); ALT/SGPT 23 U/L (7-56); AST/SGOT 25 U/L (14-36); BILIRUBIN,TOTAL 0.4 mg/dL (0.2-1.3); BLOOD UREA NITROGEN 25 mg/dL (7-21); CALCIUM 8.8 mg/dL (8.4-10.5); CHLORIDE 88 mmol/L (98-107); GFR AFRICAN-AMERICAN > 60; GLUCOSE,RANDOM 193 mg/dL (70-110); MAGNESIUM 2.2 mg/dL (1.7-2.2); PHOSPHOROUS 3.3 mg/dL (2.5-4.5); SODIUM 140 mmol/L (132-148); TOTAL PROTEIN 5.9 g/dL (5.8-8.3)
[2017-08-02 07:34] LABS: CARBON DIOXIDE 43 mmol/L (21-33)
[2017-08-02 07:35] LABS: POTASSIUM 2.9 mmol/L (3.6-5.0)
[2017-08-02] MEDS: Insulin Lispro (humaLOG) LOW Coverage SC SCH ×4 (08:18→22:01)
[2017-08-02] MEDS ORDERED: Potassium Chloride 20 mEq ER Tab PO ONE (08:22)
[2017-08-02] MEDS: Arformoterol 15 mcg/2 ml Inh Sol IH SCH ×2 (08:37→21:45)
[2017-08-02] MEDS: levoFLOXacin 750 mg in D5W 150 ML BAG IVPB SCH (18:29)
[2017-08-02] MEDS: cefTRIAXone 1 gm 1 GM/100 ML BAG IVPB SCH (18:29)
[2017-08-02] MEDS: Budesonide 0.25 mg/2 ml Inhal Susp UD IH SCH (21:49)
--- NOTE | 2017-08-02 21:56 | CP.PCM.PN ---
Subjective - Date & Time of Evaluation Date of Evaluation: 08/02/17 Time of Evaluation: 19:30 - Subjective Subjective: Feeling better today but still cough, SOB and wheezing on and off. Denies fever or chills. Objective - Vital Signs/Intake and Output Vital Signs (last 24 hours): Temp Pulse Resp BP Pulse Ox 98.8 F 85 20 123/60 94 L 08/02/17 16:00 08/02/17 16:00 08/02/17 16:00 08/02/17 16:00 08/02/17 16:00 Intake and Output: 08/02/17 08/03/17 18:59 06:59 Intake Total 780 Balance 780 - Medications Medications: Current Medications Albuterol/Ipratropium (Duoneb 3 Mg/0.5 Mg (3 Ml) Ud) 3 ml IH [id number] [facility] Last Admin: 08/02/17 14:05 Dose: 3 ml Albuterol/Ipratropium (Duoneb 3 Mg/0.5 Mg (3 Ml) Ud) 3 ml IH Q2H PRN PRN Reason: Shortness of Breath Arformoterol Tartrate (Brovana) 15 mcg IH [id number] [facility] Last Admin: 08/02/17 08:37 Dose: 15 mcg Budesonide (Pulmicort Respules) 0.5 mg IH [id number] [facility] Last Admin: 08/01/17 21:44 Dose: 0.5 mg Furosemide (Lasix) 40 mg IVP DAILY [facility] Last Admin: 08/02/17 09:12 Dose: 40 mg Guaifenesin/Dextromethorphan (Robitussin Dm) 10 ml PO Q4H PRN PRN Reason: Cough Last Admin: 08/02/17 15:32 Dose: 10 ml Ceftriaxone Sodium (Rocephin 1 Gram Ivpb) 1 gm in 100 mls @ 100 mls/hr IVPB 1800 MIKE PRN Reason: Protocol Last Admin: 08/02/17 18:29 Dose: 100 mls/hr Insulin Human Lispro (Humalog Low) 0 units SC ACHS [facility] PRN Reason: Protocol Last Admin: 08/02/17 18:21 Dose: 1 units Levofloxacin/Dextrose (Levaquin 750mg) 750 mg IVPB Q24H [facility] Last Admin: 08/02/17 18:29 Dose: 750 mg Methylprednisolone (Solu-Medrol) 40 mg IVP Q6 [facility] Last Admin: 08/02/17 18:28 Dose: 40 mg Metronidazole (Flagyl) 500 mg PO Q8 [facility] PRN Reason: Protocol Pantoprazole Sodium (Protonix Ec Tab) 40 mg PO 0600 [facility] Last Admin: 08/02/17 05:27 Dose: 40 mg - Labs Labs: 08/02/17 06:51 08/02/17 06:51 PT 11.5 Seconds (9.9-11.8) 07/29/17 16:50 INR 1.06 (0.93-1.08) 07/29/17 16:50 APTT 30.8 Seconds (23.7-30.8) 07/29/17 16:50 - Constitutional Appears: Well, No Acute Distress - Head Exam Head Exam: ATRAUMATIC, NORMAL INSPECTION, NORMOCEPHALIC - Eye Exam Eye Exam: EOMI, Normal appearance, PERRL Pupil Exam: NORMAL ACCOMODATION, PERRL - ENT Exam ENT Exam: Mucous Membranes Moist, Normal Exam - Neck Exam Neck Exam: Full ROM, Normal Inspection. absent: Lymphadenopathy - Respiratory Exam Respiratory Exam: Clear to Ausculation Bilateral, NORMAL BREATHING PATTERN - Cardiovascular Exam Cardiovascular Exam: REGULAR RHYTHM, +S1, +S2. absent: Murmur - GI/Abdominal Exam GI & Abdominal Exam: Soft, Normal Bowel Sounds. absent: Tenderness - Extremities Exam Extremities Exam: Full ROM, Normal Capillary Refill, Normal Inspection. absent : Joint Swelling, Pedal Edema - Back Exam Back Exam: NORMAL INSPECTION. absent: CVA tenderness (L), CVA tenderness (R) - Neurological Exam Neurological Exam: Abnormal Gait, Alert, Awake, CN II-XII Intact, Oriented x3 - Psychiatric Exam Psychiatric exam: Normal Affect, Normal Mood - Skin Skin Exam: Dry, Intact, Normal Color, Warm Assessment and Plan (1) Acute respiratory failure with hypercapnia Assessment & Plan: Resolved COPD Exacerbation- Improved Leukocytosis- Improving Continue IV Levaquin and Rocephin IV SOlumedrol Duoneb RTC O2 Via NC Status: Acute (2) Hypokalemia Status: Resolved Status: Resolved
[2017-08-03] MEDS: guaiFENesin DM 200 mg-20 mg/10 ml UD PO PRN ×3 (00:30→16:07)
[2017-08-03] MEDS: Albuterol-Ipratrop 3 mg / 0.5 (3 ml) UD IH SCH ×4 (02:50→22:26)
[2017-08-03] MEDS: Pantoprazole 40 mg EC Tab PO SCH (06:31)
[2017-08-03] MEDS: MethylPREDNISolone 40 mg Vial IVP SCH ×2 (06:33→23:45)
[2017-08-03 06:38] LABS: BASO # 0.03 K/mm3 (0.0-2.0); BASO % 0.2 % (0.0-3.0); GRAN # 13.93 (1.4-6.5); GRAN % 88.5 % (50.0-68.0); HEMATOCRIT 46.5 % (36.0-48.0); LYMPH # 0.9 (1.2-3.4); LYMPH % 5.5 % (22.0-35.0); MEAN CELL VOLUME 94.1 fl (80.0-105.0); MEAN CORPUSCULAR HEMOGLOBIN 30.8 pg (25.0-35.0); MEAN CORPUSCULAR HGB CONC 32.7 g/dl (31.0-37.0); MEAN PLATELET VOLUME 10.6 fl (7.0-11.0); MONO # 0.9 (0.1-0.6); MONO % 5.8 % (1.0-6.0); RED CELL DISTRIBUTION WIDTH 13.8 % (11.5-14.5); WHITE BLOOD COUNT 15.7 10^3/ul (4.5-11.0)
[2017-08-03] MEDS: Arformoterol 15 mcg/2 ml Inh Sol IH SCH ×2 (07:33→22:26)
[2017-08-03] MEDS: Budesonide 0.25 mg/2 ml Inhal Susp UD IH SCH (07:34)
[2017-08-03 07:58] LABS: ALB/GLOB RATIO 1.2 (1.1-1.8); BILIRUBIN,TOTAL 0.4 mg/dL (0.2-1.3); BLOOD UREA NITROGEN 19 mg/dL (7-21); CALCIUM 8.6 mg/dL (8.4-10.5); CHLORIDE 91 mmol/L (98-107); GFR AFRICAN-AMERICAN > 60; GLUCOSE,RANDOM 146 mg/dL (70-110); PHOSPHOROUS 3.3 mg/dL (2.5-4.5); SODIUM 136 mmol/L (132-148); TOTAL PROTEIN 5.6 g/dL (5.8-8.3)
[2017-08-03 08:15] LABS: ALKALINE PHOSPHATASE 74 U/L (38-126); ALT/SGPT 21 U/L (7-56); AST/SGOT 19 U/L (14-36); CARBON DIOXIDE 39 mmol/L (21-33); POTASSIUM 3.7 mmol/L (3.6-5.0)
[2017-08-03] MEDS: Insulin Lispro (humaLOG) LOW Coverage SC SCH ×4 (08:33→23:43)
[2017-08-03] MEDS ORDERED: MethylPREDNISolone 40 mg Vial IVP ONE (12:23)
[2017-08-03] MEDS: levoFLOXacin 750 mg in D5W 150 ML BAG IVPB SCH (16:13)
[2017-08-03] MEDS: cefTRIAXone 1 gm 1 GM/100 ML BAG IVPB SCH (17:59)
--- NOTE | 2017-08-03 20:34 | CP.PCM.PN ---
Subjective - Date & Time of Evaluation Date of Evaluation: 08/03/17 Time of Evaluation: 11:00 - Subjective Subjective: Seen and examined at the bed side. Walked with Physical therapist when she Desaturated to 89% in RA. Denied chest pain, Palpitation. PT recommended Rehab at TCU but patient refusing, and Advance o discharge planning tomorrow. Objective - Vital Signs/Intake and Output Vital Signs (last 24 hours): Temp Pulse Resp BP Pulse Ox 98 F 77 18 117/66 94 L 08/03/17 16:00 08/03/17 16:00 08/03/17 16:00 08/03/17 16:00 08/03/17 16:00 - Medications Medications: Current Medications Albuterol/Ipratropium (Duoneb 3 Mg/0.5 Mg (3 Ml) Ud) 3 ml IH [id number] [facility] Last Admin: 08/03/17 13:24 Dose: Not Given Albuterol/Ipratropium (Duoneb 3 Mg/0.5 Mg (3 Ml) Ud) 3 ml IH Q2H PRN PRN Reason: Shortness of Breath Arformoterol Tartrate (Brovana) 15 mcg IH [id number] [facility] Last Admin: 08/03/17 07:33 Dose: 15 mcg Budesonide (Pulmicort Respules) 0.5 mg IH [id number] [facility] Last Admin: 08/03/17 07:34 Dose: 0.25 mg Furosemide (Lasix) 40 mg IVP DAILY [facility] Last Admin: 08/03/17 10:07 Dose: 40 mg Guaifenesin/Dextromethorphan (Robitussin Dm) 10 ml PO Q4H PRN PRN Reason: Cough Last Admin: 08/03/17 16:07 Dose: 10 ml Ceftriaxone Sodium (Rocephin 1 Gram Ivpb) 1 gm in 100 mls @ 100 mls/hr IVPB 1800 MIKE PRN Reason: Protocol Last Admin: 08/03/17 17:59 Dose: 100 mls/hr Insulin Human Lispro (Humalog Low) 0 units SC ACHS [facility] PRN Reason: Protocol Last Admin: 08/03/17 16:06 Dose: 2 units Levofloxacin/Dextrose (Levaquin 750mg) 750 mg IVPB Q24H [facility] Last Admin: 08/03/17 16:13 Dose: 750 mg Methylprednisolone (Solu-Medrol) 40 mg IVP Q12 [facility] Metronidazole (Flagyl) 500 mg PO Q8 [facility] PRN Reason: Protocol Last Admin: 08/03/17 15:01 Dose: 500 mg Pantoprazole Sodium (Protonix Ec Tab) 40 mg PO 0600 [facility] Last Admin: 08/03/17 06:31 Dose: 40 mg - Labs Labs: 08/03/17 06:00 08/03/17 06:00 PT 11.5 Seconds (9.9-11.8) 07/29/17 16:50 INR 1.06 (0.93-1.08) 07/29/17 16:50 APTT 30.8 Seconds (23.7-30.8) 07/29/17 16:50 - Constitutional Appears: Well, No Acute Distress - Head Exam Head Exam: ATRAUMATIC, NORMAL INSPECTION, NORMOCEPHALIC - Eye Exam Eye Exam: EOMI, Normal appearance, PERRL Pupil Exam: NORMAL ACCOMODATION, PERRL - ENT Exam ENT Exam: Mucous Membranes Moist, Normal Exam - Neck Exam Neck Exam: Full ROM, Normal Inspection. absent: Lymphadenopathy - Respiratory Exam Respiratory Exam: Decreased Breath Sounds, Clear to Ausculation Bilateral, NORMAL BREATHING PATTERN. absent: Respiratory Distress - Cardiovascular Exam Cardiovascular Exam: REGULAR RHYTHM, JVD, +S1, +S2. absent: Murmur - GI/Abdominal Exam GI & Abdominal Exam: Soft, Normal Bowel Sounds. absent: Tenderness - Extremities Exam Extremities Exam: Full ROM, Normal Capillary Refill, Normal Inspection. absent : Joint Swelling, Pedal Edema - Back Exam Back Exam: NORMAL INSPECTION. absent: CVA tenderness (L), CVA tenderness (R) - Neurological Exam Neurological Exam: Abnormal Gait, Alert, Awake, CN II-XII Intact, Normal Gait, Oriented x3 - Psychiatric Exam Psychiatric exam: Normal Affect, Normal Mood - Skin Skin Exam: Dry, Intact, Normal Color, Warm Assessment and Plan (1) Acute respiratory failure with hypercapnia Assessment & Plan: Resolved COPD Exacerbation- Improving Leukocytosis- Improvd Continue IV Levaquin and Rocephin Decrease IV Solumedrol to 40mg IV q12hrs Duoneb RTC O2 Via NC Status: Acute (2) Chronic Smoker Status: Resolved Counselled to quit smoking (3) DVT Prophylaxis Status: Resolved
[2017-08-04] MEDS: Pantoprazole 40 mg EC Tab PO SCH (05:41)
[2017-08-04 06:23] LABS: BASO # 0.02 K/mm3 (0.0-2.0); BASO % 0.1 % (0.0-3.0); GRAN # 15.48 (1.4-6.5); GRAN % 89.3 % (50.0-68.0); HEMATOCRIT 47.4 % (36.0-48.0); LYMPH # 1.1 (1.2-3.4); LYMPH % 6.3 % (22.0-35.0); MEAN CELL VOLUME 92.6 fl (80.0-105.0); MEAN CORPUSCULAR HEMOGLOBIN 30.5 pg (25.0-35.0); MEAN CORPUSCULAR HGB CONC 32.9 g/dl (31.0-37.0); MEAN PLATELET VOLUME 10.7 fl (7.0-11.0); MONO # 0.8 (0.1-0.6); MONO % 4.3 % (1.0-6.0); RED CELL DISTRIBUTION WIDTH 13.6 % (11.5-14.5); WHITE BLOOD COUNT 17.4 10^3/ul (4.5-11.0)
[2017-08-04 06:43] LABS: ALB/GLOB RATIO 1.4 (1.1-1.8); ALKALINE PHOSPHATASE 68 U/L (38-126); ALT/SGPT 32 U/L (7-56); AST/SGOT 23 U/L (14-36); BILIRUBIN,TOTAL 0.6 mg/dL (0.2-1.3); BLOOD UREA NITROGEN 21 mg/dL (7-21); CALCIUM 8.6 mg/dL (8.4-10.5); CHLORIDE 90 mmol/L (95-110); GFR AFRICAN-AMERICAN > 60; GLUCOSE,RANDOM 139 mg/dL (70-110); MAGNESIUM 1.9 mg/dL (1.7-2.2); PHOSPHOROUS 3.3 mg/dL (2.5-4.5); POTASSIUM 3.5 mmol/L (3.6-5.0); SODIUM 135 mmol/L (132-148); TOTAL PROTEIN 5.7 g/dL (5.8-8.3)
[2017-08-04 06:54] LABS: CARBON DIOXIDE 37 mmol/L (21-33)
[2017-08-04] MEDS: Budesonide 0.25 mg/2 ml Inhal Susp UD IH SCH (07:40)
[2017-08-04] MEDS: Albuterol-Ipratrop 3 mg / 0.5 (3 ml) UD IH SCH ×2 (07:40→13:16)
[2017-08-04] MEDS: Arformoterol 15 mcg/2 ml Inh Sol IH SCH (07:40)
[2017-08-04 08:07] VITALS: BP 115/63; RESP 22; TEMP 98.2
[2017-08-04] MEDS: Insulin Lispro (humaLOG) LOW Coverage SC SCH ×2 (08:14→12:02)
[2017-08-04] MEDS: MethylPREDNISolone 40 mg Vial IVP SCH (10:32)
[2017-08-04 11:21] VITALS: PULSE 102; O2SAT 97
--- NOTE | 2017-08-04 19:23 | CARD ---
APPROVED REPORT EXAM: Two-dimensional and M-mode echocardiogram with Doppler and color Doppler. INDICATION Dyspnea 2D DIMENSIONS Left Atrium (2D)2.9 (1.6-4.0cm)IVSd1.0 (0.7-1.1cm) LVDd3.1 (3.9-5.9cm)PWd1.1 (0.7-1.1cm) LVDs2.1 (2.5-4.0cm)FS (%) 33.4 % LVEF (%)63.7 (>50%) M-Mode DIMENSIONS Aortic Root2.10 (2.2-3.7cm)Aortic Cusp Exc.1.20 (1.5-2.0cm) Aortic Valve AoV Peak Iywwjonk165.0cm/Elpidio Peak GR.9mmHg Mitral Valve MV E Xeycmhpe96.1cm/sMV A Ismqvtmu95.8cm/sE/A ratio0.6 TDI E/Lateral E'0.0E/Medial E'0.0 LEFT VENTRICLE The left ventricle is normal size. There is normal left ventricular wall thickness. The left ventricular function is normal.EF-60-65% There is normal LV segmental wall motion. Transmitral Doppler flow pattern is Grade III-reversible restrictive diastolic dysfunction. No left ventricle thrombus noted on this study. There is no ventricular septal defect visualized. There is no left ventricular aneurysm. There is no mass noted in the left ventricle. RIGHT VENTRICLE The right ventricle is normal size. There is normal right ventricular wall thickness. The right ventricular systolic function is normal. ATRIA The left atrium size is normal. The right atrium size is normal. The interatrial septum is intact with no evidence for an atrial septal defect. AORTIC VALVE The aortic valve is thickened but opens well. The aortic valve is mildly to moderately sclerotic. No aortic regurgitation is present. There is no aortic valvular stenosis. There is no aortic valvular vegetation. MITRAL VALVE The mitral valve is thickened but opens well. Mitral annular calcification is mild to moderate. Mitral regurgitation is trace. There is no mitral valve stenosis. There is no evidence of mitral valve prolapse. TRICUSPID VALVE The tricuspid valve leaflets are thickened , but open well. There is trace tricuspid regurgitation. There is no tricuspid valve stenosis. There is no tricuspid valve prolapse or vegetation. PULMONIC VALVE The pulmonary valve is normal in structure. There is trace pulmonic valvular regurgitation. There is no pulmonic valvular stenosis. GREAT VESSELS The aortic root is normal in size. The ascending aorta is normal in size. The pulmonary artery is normal. The IVC is normal in size and collapses >50% with inspiration. PERICARDIAL EFFUSION There is no pleural effusion. There is no pericardial effusion. <Conclusion> The left ventricle is normal size. There is normal left ventricular wall thickness. The left ventricular function is normal.EF-60-65% Mitral regurgitation is trace. There is trace tricuspid regurgitation. The IVC is normal in size and collapses >50% with inspiration. There is no pericardial effusionNo Vegetation noted.
--- NOTE | 2017-08-04 22:56 | CP.PCM.DIS ---
Provider - Provider Date of Admission: 07/29/17 18:12 Attending physician: Alfred Ojeda MD Primary care physician: Ezio Avila MD Time Spent in preparation of Discharge (in minutes): 25 Diagnosis - Discharge Diagnosis (1) Acute respiratory failure with hypercapnia Status: Resolved Hospital Course - Lab Results Lab Results: Micro Results 08/02/17 22:40 Stool C. difficile Antigen & Toxin A,B (M - Final 07/30/17 06:00 Naris MRSA Culture (Admit) - Final MRSA NOT DETECTED Most Recent Lab Values WBC 17.4 10^3/ul (4.5-11.0) H 08/04/17 05:40 RBC 5.12 10^6/uL (3.5-6.1) 08/04/17 05:40 Hgb 15.6 g/dL (12.0-16.0) 08/04/17 05:40 Hct 47.4 % (36.0-48.0) 08/04/17 05:40 MCV 92.6 fl (80.0-105.0) 08/04/17 05:40 MCH 30.5 pg (25.0-35.0) 08/04/17 05:40 MCHC 32.9 g/dl (31.0-37.0) 08/04/17 05:40 RDW 13.6 % (11.5-14.5) 08/04/17 05:40 Plt Count 282 10^3/uL (120.0-450.0) 08/04/17 05:40 MPV 10.7 fl (7.0-11.0) 08/04/17 05:40 Gran % 89.3 % (50.0-68.0) H 08/04/17 05:40 Lymph % (Auto) 6.3 % (22.0-35.0) L 08/04/17 05:40 Park % (Auto) 4.3 % (1.0-6.0) 08/04/17 05:40 Eos % (Auto) 0.0 % (1.5-5.0) L 08/04/17 05:40 Baso % (Auto) 0.1 % (0.0-3.0) 08/04/17 05:40 Gran # 15.48 (1.4-6.5) H 08/04/17 05:40 Lymph # 1.1 (1.2-3.4) L 08/04/17 05:40 Park # 0.8 (0.1-0.6) H 08/04/17 05:40 Eos # 0.0 (0.0-0.7) 08/04/17 05:40 Baso # 0.02 K/mm3 (0.0-2.0) 08/04/17 05:40 Neutrophils % (Manual) 68 % (50.0-70.0) 07/29/17 16:50 Band Neutrophils % 3 % (0-2) H 07/29/17 16:50 Lymphocytes % (Manual) 18 % (22.0-35.0) L 07/29/17 16:50 Monocytes % (Manual) 11 % (1.0-6.0) H 07/29/17 16:50 Platelet Evaluation Normal (NORMAL) 07/29/17 16:50 PT 11.5 Seconds (9.9-11.8) 07/29/17 16:50 INR 1.06 (0.93-1.08) 07/29/17 16:50 APTT 30.8 Seconds (23.7-30.8) 07/29/17 16:50 pCO2 54 mm/Hg (35-45) H 07/30/17 05:20 pO2 88.0 mm/Hg (80-100) 07/30/17 05:20 HCO3 38.4 mmol/L (21-28) H 07/30/17 05:20 ABG pH 7.46 (7.35-7.45) H 07/30/17 05:20 ABG Total CO2 40.1 mmol.L (22-28) H 07/30/17 05:20 ABG O2 Saturation 98.5 % (95-98) H 07/30/17 05:20 ABG O2 Content 20.5 ML/dl (15-23) 07/30/17 05:20 ABG Base Excess 12.1 mmol/L (-2.0-3.0) H 07/30/17 05:20 ABG Hemoglobin 15.2 g/dL (11.7-17.4) 07/30/17 05:20 ABG Carboxyhemoglobin 1.6 % (0.5-1.5) H 07/30/17 05:20 POC ABG HHb (Measured) 1.5 % (0-5) 07/30/17 05:20 ABG Methemoglobin 0.9 % (0.0-3.0) 07/30/17 05:20 ABG O2 Capacity 20.8 mL/dl (16-24) 07/30/17 05:20 VBG pH 7.41 (7.32-7.43) 07/29/17 20:13 VBG pCO2 49.0 (40-60) 07/29/17 20:13 VBG HCO3 31.1 mmol/l (21-28) H 07/29/17 20:13 VBG Total CO2 32.6 mmol.L (22-28) H 07/29/17 20:13 VBG O2 Sat (Calc) 96.1 % (40-65) H 07/29/17 20:13 VBG Base Excess 5.3 mmol/L (0.0-2.0) H 07/29/17 20:13 VBG Potassium 2.6 mmol/L (3.6-5.2) L 07/29/17 20:13 Hgb O2 Saturation 95.9 % (95.0-98.0) 07/30/17 05:20 Sodium 134.0 mmol/L (132-148) 07/29/17 20:13 Chloride 93.0 mmol/L (98-107) L 07/29/17 20:13 Glucose 297 mg/dl (65-105) H 07/29/17 20:13 Lactate 2.9 mmol/L (0.7-2.1) H 07/29/17 20:13 FiO2 35.0 % 07/30/17 05:20 Sodium 135 mmol/L (132-148) 08/04/17 05:40 Potassium 3.5 mmol/L (3.6-5.0) L 08/04/17 05:40 Chloride 90 mmol/L (95-110) L 08/04/17 05:40 Carbon Dioxide 37 mmol/L (21-33) H 08/04/17 05:40 Anion Gap 12 (10-20) 08/04/17 05:40 BUN 21 mg/dL (7-21) 08/04/17 05:40 Creatinine 0.6 mg/dL (0.7-1.2) L 08/04/17 05:40 Est GFR ( Amer) > 60 08/04/17 05:40 Est GFR (Non-Af Amer) > 60 08/04/17 05:40 POC Glucose (mg/dL) 125 mg/dL (65-110) H 08/03/17 21:18 Random Glucose 139 mg/dL (70-110) H 08/04/17 05:40 Calcium 8.6 mg/dL (8.4-10.5) 08/04/17 05:40 Phosphorus 3.3 mg/dL (2.5-4.5) 08/04/17 05:40 Magnesium 1.9 mg/dL (1.7-2.2) 08/04/17 05:40 Total Bilirubin 0.6 mg/dL (0.2-1.3) 08/04/17 05:40 AST 23 U/L (14-36) 08/04/17 05:40 ALT 32 U/L (7-56) 08/04/17 05:40 Alkaline Phosphatase 68 U/L (38-126) 08/04/17 05:40 Lactate Dehydrogenase 463 U/L (333-699) 07/29/17 16:50 Total Creatine Kinase 64 U/L (35-230) 07/29/17 16:50 Troponin I 0.05 ng/mL 07/29/17 16:50 NT-Pro-B Natriuret Pep 3410 pg/mL (0-450) H 07/29/17 16:50 Total Protein 5.7 g/dL (5.8-8.3) L 08/04/17 05:40 Albumin 3.3 g/dL (3.0-4.8) 08/04/17 05:40 Globulin 2.4 gm/dL 08/04/17 05:40 Albumin/Globulin Ratio 1.4 (1.1-1.8) 08/04/17 05:40 Procalcitonin 0.24 NG/ML (0.19-0.49) 07/29/17 14:50 Venous Blood Potassium 2.6 mmol/L (3.6-5.2) L 07/29/17 20:13 Urine Color Yellow (YELLOW) 07/30/17 03:00 Urine Appearance Sl cloudy (CLEAR) 07/30/17 03:00 Urine pH 5.5 (4.7-8.0) 07/30/17 03:00 Ur Specific [place] 1.020 (1.005-1.035) 07/30/17 03:00 Urine Protein 100 mg/dL (<30 mg/dL) H 07/30/17 03:00 Urine Glucose (UA) Negative mg/dL (NEGATIVE) 07/30/17 03:00 Urine Ketones Negative mg/dL (NEGATIVE) 07/30/17 03:00 Urine Blood Moderate (NEGATIVE) H 07/30/17 03:00 Urine Nitrate Negative (NEGATIVE) 07/30/17 03:00 Urine Bilirubin Negative (NEGATIVE) 07/30/17 03:00 Urine Urobilinogen 0.2 E.U./dL (<1 E.U./dL) 07/30/17 03:00 Ur Leukocyte Esterase Negative [place]rienne/uL (NEGATIVE) 07/30/17 03:00 Urine RBC 1 - 3 /hpf (0-2) 07/30/17 03:00 Urine WBC 0 - 2 /hpf (0-6) 07/30/17 03:00 Urine Bacteria Mod (NEG) 07/30/17 03:00 Influenza Typ A,B (EIA) Negative for flu a/b (NEGATIVE) 07/29/17 17:50 - Hospital Course Hospital Course: A 66yoF was hospitalized for Acute Respiratory Failure in ICU, and Improved after IV Antibiotics, Iv Solumedrol, Pulmicort Neb Duoneb, Brovana, and IVF. Recommended TCU after PT Eval but patient declined. Discharge Exam - Head Exam Head Exam: ATRAUMATIC, NORMAL INSPECTION, NORMOCEPHALIC - Eye Exam Eye Exam: EOMI, Normal appearance, PERRL Pupil Exam: NORMAL ACCOMODATION, PERRL - Respiratory Exam Respiratory Exam: Decreased Breath Sounds, NORMAL BREATHING PATTERN. absent: Wheezes - Cardiovascular Exam Cardiovascular Exam: +S1, +S2 - GI/Abdominal Exam GI & Abdominal Exam: Normal Bowel Sounds - Extremities Exam Extremities exam: full ROM, joint swelling, normal capillary refill - Back Exam Back exam: FULL ROM, NORMAL INSPECTION - Neurological Exam Neurological exam: Abnormal Gait, Alert, CN II-XII Intact, Oriented x3, Reflexes Normal - Psychiatric Exam Psychiatric exam: Normal Affect, Normal Mood - Skin Skin Exam: Dry, Intact, Normal Color, Warm Discharge Plan - Discharge Medications Prescriptions: Lactobacillus Acidophilus [Bacid Acidophilus] 1 cap PO BID #30 cap Methylprednisolone [Medrol Dose Pack (21 tabs)] 4 mg PO DAILY #21 mg Budesonide/Formoterol Fumarate [Symbicort 160-4.5 Mcg Inhaler] 1 puff IH BID 30 Days hfa.aer.ad Albuterol HFA [Ventolin HFA 90 mcg/actuation (8 g)] 2 puff IH Q4 30 Days puff - Follow Up Plan Condition: CRITICAL Disposition: HOME/ ROUTINE Instructions: Hypokalemia (DC), COPD (Chronic Obstructive Pulmonary Disease) ( DC), Hypokalemia (GEN) Additional Instructions: FOLLOW UP WITH PRIMARY PHYSICIAN IN 2 WEEKS. TAKE MEDICATIONS INSTRUCTED. NO SMOKING. TAKE MEDROL PACK INSTRUCTED. ANY SHORTNESS OF BREATH REPORT TO MD OR GO TO ER. Referrals: Ezio Avila MD [Primary Care Provider] -
== END 2017-08-04 13:41 | disposition home or self-care (01) | DRG 189 ==
LOC: ED 16:32 → ERH 18:12 → CCU 19:26 → 3RSO 07-31 00:17 → 3RNO 08-03 17:52
PROVIDERS: ADMIT Internal Medicine; ATTEND Internal Medicine
PROC: 5A09457 Assistance with Respiratory Ventilation, 24-96 Consecutive Hours, Continuous Positive Airway Pressure (ICD-10-PCS; principal; 2017-07-29)
PROC: 3E0F7GC Introduction of Other Therapeutic Substance into Respiratory Tract, Via Natural or Artificial Opening (ICD-10-PCS; 2017-07-30)
DX: J96.02 Acute respiratory failure with hypercapnia (principal); J44.1 Chronic obstructive pulmonary disease with (acute) exacerbation; F17.210 Nicotine dependence, cigarettes, uncomplicated; E87.6 Hypokalemia; K21.9 Gastro-esophageal reflux disease without esophagitis